=== PATIENT | male | born 1940 ===

== ENCOUNTER → 2024-08-13 | Outpatient (CLI) | payer MEDICARE | END | disposition home or self-care (01) | LOC: WOUNDCARE 02:02 | PROVIDERS: ATTEND Nurse Practitioner Family | DX: L89.322 Pressure ulcer of left buttock, stage 2 (principal); N31.9 Neuromuscular dysfunction of bladder, unspecified; I10 Essential (primary) hypertension; K21.9 Gastro-esophageal reflux disease without esophagitis; R26.89 Other abnormalities of gait and mobility; R41.841 Cognitive communication deficit; R15.9 Full incontinence of feces; Z98.890 Other specified postprocedural states; Z79.899 Other long term (current) drug therapy ==

== ENCOUNTER → 2024-08-20 | Outpatient (CLI) | payer MEDICARE | END | disposition home or self-care (01) | LOC: WOUNDCARE 01:38 | PROVIDERS: ATTEND Nurse Practitioner Family | DX: L89.322 Pressure ulcer of left buttock, stage 2 (principal); I10 Essential (primary) hypertension; H35.3290 Exudative age-related macular degeneration, unspecified eye, stage unspecified; K21.9 Gastro-esophageal reflux disease without esophagitis; E55.9 Vitamin D deficiency, unspecified; R26.89 Other abnormalities of gait and mobility; R41.841 Cognitive communication deficit; R15.9 Full incontinence of feces; N31.9 Neuromuscular dysfunction of bladder, unspecified; Z79.899 Other long term (current) drug therapy; Z96.642 Presence of left artificial hip joint; Z98.890 Other specified postprocedural states ==

== ENCOUNTER → 2024-08-27 | Outpatient (CLI) | payer MEDICARE | END | disposition home or self-care (01) | LOC: WOUNDCARE 01:57 | PROVIDERS: ATTEND Nurse Practitioner Family | DX: L89.322 Pressure ulcer of left buttock, stage 2 (principal); I10 Essential (primary) hypertension; K21.9 Gastro-esophageal reflux disease without esophagitis; H35.3290 Exudative age-related macular degeneration, unspecified eye, stage unspecified; E55.9 Vitamin D deficiency, unspecified; N13.9 Obstructive and reflux uropathy, unspecified; R26.89 Other abnormalities of gait and mobility; R41.841 Cognitive communication deficit; R15.9 Full incontinence of feces; Z96.642 Presence of left artificial hip joint; Z90.79 Acquired absence of other genital organ(s); Z98.890 Other specified postprocedural states; Z79.899 Other long term (current) drug therapy ==

== ENCOUNTER → 2025-05-19 | Outpatient (CLI) | payer MEDICARE | END | disposition home or self-care (01) | LOC: WOUNDCARE 02:54 | PROVIDERS: ATTEND Nurse Practitioner Family | DX: L89.323 Pressure ulcer of left buttock, stage 3 (principal); N31.9 Neuromuscular dysfunction of bladder, unspecified; R41.81 Age-related cognitive decline; R15.9 Full incontinence of feces; R26.89 Other abnormalities of gait and mobility; I10 Essential (primary) hypertension; K21.9 Gastro-esophageal reflux disease without esophagitis; Z96.642 Presence of left artificial hip joint ==

== ENCOUNTER → 2025-05-27 | Outpatient (CLI) | payer MEDICARE | END | disposition home or self-care (01) | LOC: WOUNDCARE 02:38 | PROVIDERS: ATTEND Nurse Practitioner Family | DX: L89.323 Pressure ulcer of left buttock, stage 3 (principal); N31.9 Neuromuscular dysfunction of bladder, unspecified; R26.89 Other abnormalities of gait and mobility; R41.81 Age-related cognitive decline; R15.9 Full incontinence of feces; I10 Essential (primary) hypertension; K21.9 Gastro-esophageal reflux disease without esophagitis; C34.11 Malignant neoplasm of upper lobe, right bronchus or lung; Z96.642 Presence of left artificial hip joint ==

== ENCOUNTER → 2025-06-03 | Outpatient (CLI) | payer MEDICARE | END | disposition home or self-care (01) | LOC: WOUNDCARE 03:09 | PROVIDERS: ATTEND Nurse Practitioner Family | DX: L89.323 Pressure ulcer of left buttock, stage 3 (principal); R26.89 Other abnormalities of gait and mobility; N31.9 Neuromuscular dysfunction of bladder, unspecified; R41.81 Age-related cognitive decline; R15.9 Full incontinence of feces; I10 Essential (primary) hypertension; K21.9 Gastro-esophageal reflux disease without esophagitis; Z96.642 Presence of left artificial hip joint ==

== ENCOUNTER → 2025-06-09 | Outpatient (CLI) | payer MEDICARE | END | disposition home or self-care (01) | LOC: WOUNDCARE 05:10 | PROVIDERS: ATTEND Nurse Practitioner Family | DX: L89.323 Pressure ulcer of left buttock, stage 3 (principal); I10 Essential (primary) hypertension; K21.9 Gastro-esophageal reflux disease without esophagitis; R26.89 Other abnormalities of gait and mobility; N31.9 Neuromuscular dysfunction of bladder, unspecified; R41.81 Age-related cognitive decline; R15.9 Full incontinence of feces; E55.9 Vitamin D deficiency, unspecified; Z96.642 Presence of left artificial hip joint; Z98.890 Other specified postprocedural states; Z79.82 Long term (current) use of aspirin; Z79.899 Other long term (current) drug therapy ==

== ENCOUNTER → 2025-06-16 | Outpatient (CLI) | payer MEDICARE | END | disposition home or self-care (01) | LOC: WOUNDCARE 02:48 | PROVIDERS: ATTEND Nurse Practitioner Family | DX: L89.323 Pressure ulcer of left buttock, stage 3 (principal); I10 Essential (primary) hypertension; K21.9 Gastro-esophageal reflux disease without esophagitis; E55.9 Vitamin D deficiency, unspecified; R26.89 Other abnormalities of gait and mobility; N31.9 Neuromuscular dysfunction of bladder, unspecified; R41.81 Age-related cognitive decline; R15.9 Full incontinence of feces; Z96.642 Presence of left artificial hip joint; Z90.79 Acquired absence of other genital organ(s); Z98.890 Other specified postprocedural states; Z79.899 Other long term (current) drug therapy ==

== ENCOUNTER → 2025-06-23 | Outpatient (CLI) | payer MEDICARE | END | disposition home or self-care (01) | LOC: WOUNDCARE 02:12 | PROVIDERS: ATTEND Nurse Practitioner Family | DX: L89.323 Pressure ulcer of left buttock, stage 3 (principal); R26.89 Other abnormalities of gait and mobility; N31.9 Neuromuscular dysfunction of bladder, unspecified; R41.81 Age-related cognitive decline; R15.9 Full incontinence of feces; I10 Essential (primary) hypertension; K21.9 Gastro-esophageal reflux disease without esophagitis; Z96.642 Presence of left artificial hip joint ==

== ENCOUNTER → 2025-06-25 | Outpatient (CLI) | payer MEDICARE | LOC: WOUNDCARE 02:57 | PROVIDERS: ATTEND Nurse Practitioner Family | DX: L89.323 Pressure ulcer of left buttock, stage 3 (principal); I10 Essential (primary) hypertension; K21.9 Gastro-esophageal reflux disease without esophagitis; N31.9 Neuromuscular dysfunction of bladder, unspecified; R26.89 Other abnormalities of gait and mobility; R41.81 Age-related cognitive decline; R15.9 Full incontinence of feces; Z96.642 Presence of left artificial hip joint; Z85.118 Personal history of other malignant neoplasm of bronchus and lung ==